=== PATIENT | female | born 2000 | race American Indian/Alaskan Native ===

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

== ENCOUNTER 2021-12-09 23:19 | Emergency (ER) | payer MEDICAID | END 2021-12-10 08:00 | disposition left against medical advice (07) | LOC: ED 23:19 | DX: R04.0 Epistaxis (principal); Z53.21 Procedure and treatment not carried out due to patient leaving prior to being seen by health care provider ==